=== PATIENT | female | born 1975 | race American Indian/Alaskan Native ===

== ENCOUNTER 2017-04-28 03:59 | Emergency (ER) | payer SELFPAY ==
[2017-04-28 04:48] LABS: Basophils % (Auto) 0.7 % (0.0-1.8); Eosinophils % (Auto) 3.3 % (0.0-4.3); Hematocrit 37.6 % (30.3-42.9); Hemoglobin 12.6 gm/dl (10.1-14.3); Mean Corpuscular HGB Conc 34 % (30-34); Mean Corpuscular Hemoglobin 29 pg (28-32); Mean Corpuscular Volume 86 fl (79-97); Platelet Count 224 K/mm3 (140-440); Red Blood Count 4.39 M/mm3 (3.65-5.03); Red Cell Distribution Width 14.5 % (13.2-15.2); White Blood Count 6.8 K/mm3 (4.5-11.0)
[2017-04-28 05:18] LABS: Anion Gap 19 mmol/L; BUN/Creatinine Ratio 25.71; Blood Urea Nitrogen 18 mg/dL (7-17); Calcium 9.1 mg/dL (8.4-10.2); Carbon Dioxide 23 mmol/L (22-30); Chloride 100.2 mmol/L (98-107); Glucose 99 mg/dL (65-100); Potassium 4.3 mmol/L (3.6-5.0); Sodium 138 mmol/L (137-145)
[2017-04-28 06:49] LABS: Bilirubin,Urine NEG (Negative); Blood,Urine NEG (Negative); Ketones,Urine NEG (Negative); Leukocyte Esterase,Urine NEG (Negative); Mucus,Urine FEW /HPF; Nitrite,Urine NEG (Negative); Protein,Urine <15 mg/dL mg/dL (Negative); Urobilinogen,Urine < 2.0 mg/dL (<2.0)
[2017-04-28] MEDS ORDERED: TORADOL IV ONE (09:21)
[2017-04-28] MEDS ORDERED: NACL 0.9% 1000 ML 1,000 ML IV ONE (09:21)
[2017-04-28] MEDS ORDERED: REGLAN IV ONE (09:21)
--- NOTE | 2017-04-28 09:30 | Emergency Department Report ---
ED Headache HPI - General Chief Complaint: Weakness Stated Complaint: SOB/CATALAN/WEAKNESS Time Seen by Provider: 04/28/17 09:14 Source: patient, RN notes reviewed Exam Limitations: no limitations - History of Present Illness Initial Comments: 41-year-old female presents to the emergency department complaining of headache , dizziness, generalized weakness, and tingling in her hands and feet. Symptoms have been present for 2 days. Symptoms have been constant since onset and have not gotten better or worse. She describes aching pain on the right side of her forehead. This pain does not radiate. Patient states that she feels like she might pass out, but there has been no loss of consciousness. She does report nausea, but there has been no vomiting. Nursing note reports shortness of breath, but the patient denies difficulty breathing. Patient states that she has no difficulty moving any of her extremities. There are no other complaints. Timing/Duration: other (2 days) Quality: moderate, constant Head Injury Location: frontal Recent Head Trauma: no recent headache/trauma Associated Symptoms: nausea/vomiting (nausea only), weakness Allergies/Adverse Reactions: Allergies No Known Allergies Allergy (Verified 04/01/15 23:03) Home Medications: Ambulatory Orders Butalb/Acetamin/Caff 50-325-40 [Fioricet] 1 each PO Q4H PRN #30 tablet 04/28/17 ED Review of Systems ROS: Stated complaint: SOB/CATALAN/WEAKNESS Other details as noted in HPI Comment: All other systems reviewed and negative Constitutional: weakness Cardiovascular: other (lightheadedness) Gastrointestinal: nausea Neurological: headache, paresthesias ED Past Medical Hx - Past Medical History Previous Medical History?: Yes Additional medical history: Vertigo. enlarged heart. - Surgical History Past Surgical History?: Yes Additional Surgical History: ovarian cyst removed - Family History Family history: CAD/GA - Social History Smoking Status: Never Smoker Substance Use Type: Alcohol - Medications Home Medications: Home Medications Medication Instructions Recorded Confirmed Last Taken Type Butalb/Acetamin/Caff 50-325-40 1 each PO Q4H PRN #30 tablet 04/28/17 Unknown Rx [Fioricet] ED Physical Exam - General Limitations: No Limitations General appearance: alert, in no apparent distress - Head Head exam: Present: atraumatic, normocephalic - Eye Eye exam: Present: normal appearance, PERRL, EOMI - ENT ENT exam: Present: normal exam, normal orophraynx, mucous membranes moist - Neck Neck exam: Present: normal inspection, full ROM. Absent: tenderness - Respiratory Respiratory exam: Present: normal lung sounds bilaterally. Absent: respiratory distress - Cardiovascular Cardiovascular Exam: Present: regular rate, normal rhythm, normal heart sounds - GI/Abdominal GI/Abdominal exam: Present: soft, normal bowel sounds. Absent: distended, tenderness - Extremities Exam Extremities exam: Present: normal inspection, full ROM. Absent: tenderness - Back Exam Back exam: Present: normal inspection, full ROM. Absent: tenderness - Neurological Exam Neurological exam: Present: alert, oriented X3. Absent: motor sensory deficit - Skin Skin exam: Present: warm, dry, intact ED Course Vital Signs 04/28/17 04/28/17 04/28/17 04:08 06:19 09:30 Temperature 98.4 F Pulse Rate 74 67 Respiratory 20 18 18 Rate Blood Pressure 170/109 Blood Pressure 123/74 [Left] O2 Sat by Pulse 100 100 Oximetry ED Medical Decision Making - Lab Data Result diagrams: 04/28/17 04:24 04/28/17 04:24 - Medical Decision Making Lab results reviewed and discussed with the patient. Patient reports her symptoms have resolved with medication. Patient will be discharged home at this time. - Differential Diagnosis tension headache, migraine headache, dehydration Critical care attestation.: If time is entered above; I have spent that time in minutes in the direct care of this critically ill patient, excluding procedure time. ED Disposition Clinical Impression: Headache Qualifiers: Headache type: tension-type Headache chronicity pattern: acute headache Intractability: not intractable Qualified Code(s): G44.209 - Tension-type headache, unspecified, not intractable Disposition: DC-01 TO HOME OR SELFCARE Is pt being admited?: No Condition: Stable Instructions: Acute Headache (ED) Prescriptions: Butalb/Acetamin/Caff 50-325-40 [Fioricet] 1 each PO Q4H PRN #30 tablet PRN Reason: Headache Referrals: PRIMARY CARE, [Primary Care Provider] - 3-5 Days Time of Disposition: 10:22
[2017-04-28 10:27] VITALS: BP 144/90
== END 2017-04-28 10:50 | disposition home or self-care (01) ==
LOC: ED 03:59
DX: R51 Headache (principal); R42 Dizziness and giddiness; R53.1 Weakness
CPT/HCPCS: 36415; 80048; 81001; 84703; 85025; 96361; 96374; 96375; 99283; J1885; J2765; J7030

== ENCOUNTER 2020-11-28 11:32 | Outpatient (CLI) | payer BC, OTHER ==
--- NOTE | 2020-11-28 13:47 | Mammography Report ---
DIGITAL DIAGNOSTIC MAMMOGRAM WITH CAD CONVENTIONAL, 11/28/2020 CLINICAL INFORMATION / INDICATION: Postbiopsy mammogram following right breast biopsy performed by Gavin Montaño. TECHNIQUE: Digital right mammographic imaging was performed. This examination was interpreted with the benefit of Computer-aided Detection analysis. COMPARISON: Prior mammograms 11/13/2020 FINDINGS: Breast Density: There are scattered areas of fibroglandular density. Postbiopsy mammogram reveals a biopsy clip appropriately positioned within the previously described r ight breast mass in the 11 to 12:00 position, middle depth. IMPRESSION: 1. Appropriately positioned biopsy clip in the previously described right breast mass. Follow up recommendation: No recall. Post biopsy imaging. A "normal" or negative report should not discourage follow up or biopsy of a clinically significant f inding. A written summary of these findings will be mailed to the patient. The patient will be entered into a mammography reporting system which will generate a reminder letter for the patient's next appointmen t at the appropriate interval. According to the [employer], yearly mammograms are recommended starting at age 40 and continuing as long as a woman is in good health. Breast MRI is recommended for women with an kellie roximately 20-25% or greater lifetime risk of breast cancer, including women with a strong family his tory of breast or ovarian cancer and women who have been treated for Hodgkin's disease. Signer Name: Martha Leggett MD Signed: 11/28/2020 1:43 PM Workstation Name: [id number]
== END 2020-11-28 11:33 | disposition home or self-care (01) ==
LOC: SPVWC 11:32
PROVIDERS: ATTEND Surgery
DX: R92.8 Other abnormal and inconclusive findings on diagnostic imaging of breast (principal)

== ENCOUNTER 2020-11-28 15:48 | Outpatient (CLI) | payer BC, OTHER | END 2020-11-28 15:49 | disposition home or self-care (01) | LOC: LABHHL 15:48 | PROVIDERS: ATTEND Surgery | DX: N63.41 Unspecified lump in right breast, subareolar (principal); N63.11 Unspecified lump in the right breast, upper outer quadrant | CPT/HCPCS: 88305; 88341; 88342 ==

== ENCOUNTER 2020-12-23 08:41 | Outpatient (CLI) | payer BC ==
--- NOTE | 2020-12-23 11:20 | Magnetic Resonance Report ---
Bilateral breast MR without and with contrast. History: Recently diagnosed right breast malignancy, assess extent of disease. Comparison: 11/28/2020, 11/13/2020, 12/26/2017. Technique: Multiplanar multisequence MR images of the breast were obtained before and after the intra venous administration of 19 mL of Clariscan contrast agent. Post processing analysis and review was p erformed on a separate computer workstation. Findings: Breast composition is predominantly fatty. There is minimal background parenchymal enhancement bilate rally. RIGHT BREAST: Located at the 12:00 position at middle depth is a 2 x 1.8 x 1.7 cm enhancing mass. Thi s is reported to represent the site of known biopsy-proven malignancy. No additional suspicious findi ngs within the right breast to suggest further extent of disease. No evidence of skin or pectoralis m uscle involvement. Right upper outer breast intramammary lymph nodes are incidentally noted and stabl e compared to 2018 mammogram. LEFT BREAST: No enhancing mass, dominant focus, or other abnormal enhancement is identified within th e left breast. No abnormal axillary or internal mammary lymph nodes. Impression: Known biopsy-proven malignancy in the right breast at the 12:00 position measures up to 2 cm. No find ings to suggest further extent of disease or additional suspicious findings within either breast. BIRADS 6: Known biopsy proven malignancy. Signer Name: Jason Niño MD Signed: 12/23/2020 11:16 AM Workstation Name: [id number]
== END 2020-12-23 08:42 | disposition home or self-care (01) ==
LOC: SPVIMAG 08:41
PROVIDERS: ATTEND Surgery
DX: C50.411 Malignant neoplasm of upper-outer quadrant of right female breast (principal); N63.12 Unspecified lump in the right breast, upper inner quadrant; R59.0 Localized enlarged lymph nodes
CPT/HCPCS: A9575; C8908; 77049

== ENCOUNTER 2021-01-01 06:21 | Day surgery (SDC) | payer BC ==
[2021-01-01] MEDS ORDERED: LACTATED RINGERS 1,000 ML IV SCH (06:30)
[2021-01-01] MEDS ORDERED: BACTERIOSTATIC SODIUM CHLORIDE 0.9% 30 ML VIAL INFILTRATI ONE (06:33)
[2021-01-01] MEDS ORDERED: ceFAZolin/STERILE WATER 2 GM/20 ML SYRINGE IV NR (08:00)
[2021-01-01] MEDS ORDERED: BUPIVACAINE/PF (0.5%) 5 MG/1 ML 30 ML VIAL INFILTRATI ONE ×2 (08:07→09:44)
[2021-01-01] MEDS ORDERED: LIDOCAINE (1%) 10 MG/1 ML VIAL 20 ML MDV ONE (08:07)
[2021-01-01] MEDS ORDERED: propofoL 200 MG/20 ML VIAL IV ONE ×2 (08:16→09:04)
[2021-01-01] MEDS ORDERED: HYDROmorphone 1 MG/1 ML INJ ONE (08:16)
[2021-01-01] MEDS ORDERED: MIDAZOLAM 2 MG/2 ML INJ ONE (08:16)
[2021-01-01] MEDS ORDERED: LIDOCAINE MPF (2%) 20 MG/1 ML VIAL 5 ML ONE (08:17)
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
--- NOTE | 2021-01-01 08:30 | Anesthesia Day of Surgery ---
Anesthesia Day of Surgery - Day of Surgery Patient Examined: Yes Patient H&P Reviewed: Yes Patient is NPO: Yes Beta Blockers: No Cardiac Clearance: No Pulmonary Clearance: No Alan's Test: N/A
[2021-01-01] MEDS ORDERED: SODIUM CHLORIDE 0.9% 100 ML ONE (08:53)
[2021-01-01] MEDS ORDERED: HEPARIN 10,000 UNITS/10 ML VIAL ONE (08:53)
[2021-01-01] MEDS ORDERED: MIDAZOLAM 2 MG/2 ML INJ IV NR (09:00)
[2021-01-01] MEDS ORDERED: SODIUM CHLORIDE 0.9% 100 ML IVPB IV ONE (09:45)
[2021-01-01] MEDS ORDERED: LIDOCAINE (1%) 10 MG/1 ML VIAL 20 ML MDV INFILTRATI ONE (09:45)
[2021-01-01] MEDS ORDERED: HEPARIN 10,000 UNITS/10 ML VIAL IV ONE (09:45)
[2021-01-01] MEDS ORDERED: SODIUM CHLORIDE 0.9% IRR 1,500 ML BOTTLE IR ONE (09:47)
[2021-01-01] MEDS ORDERED: ONDANSETRON 4 MG/2 ML INJ ONE (09:58)
--- NOTE | 2021-01-01 10:05 | Short Stay Summary ---
Short Stay Documentation Date of service: 01/01/21 - History Principal diagnosis: right breast cancer H&P: obtained from office - Allergies and Medications Current Medications: Allergies methylphenidate [From Ritalin] Allergy (Verified 12/30/20 11:58) Makes pt feel suicidal Home Medications Medication Instructions Recorded Confirmed Last Taken Type LORazepam [Ativan] 1 mg PO TID PRN 12/30/20 01/01/21 01/01/21 06:25 History Metoprolol [Lopressor] 25 mg PO DAILY 12/30/20 01/01/21 01/01/21 04:05 History Zolpidem [Ambien] 5 mg PO QHS PRN 01/01/21 01/01/21 12/01/20 History Active Medications Cefazolin Sodium (Cefazolin/Sterile Water 2 Gm/20 Ml Syringe) 2 gm IV PREOP NR Stop: 01/01/21 13:00 Lactated Ringer's (Lactated Ringers) 1,000 mls @ 100 mls/hr IV DIRECT ZEYAD Last Admin: 01/01/21 07:37 Dose: 100 mls/hr Documented by: Midazolam HCl (Midazolam 2 Mg/2 Ml Inj) 2 mg IV PREOP NR Stop: 01/01/21 23:59 Last Admin: 01/01/21 08:18 Dose: 2 mg Documented by: - Brief post op/procedure progress note Date of procedure: 01/01/21 Pre-op diagnosis: right breast cancer Post-op diagnosis: same Procedure: left IJ vein port placement with bedside ultrasound guidance Anesthesia: MAC, local Findings: good placement of port without PTX on post op CXR Surgeon: MARY OVALLES Estimated blood loss: minimal Pathology: none Condition: stable - Hospital course Hospital course: Pt observed in PACU and discharged to home in stable condition when criteria met - Disposition Condition at discharge: Good Disposition: DC-01 TO HOME OR SELFCARE Short Stay Discharge Plan Activity: advance as tolerated, other (Do not drive if taking prescription pain medications) Diet: regular Wound: open to air (May shower tomorrow, pat incisions dry and do not scrub. Do not submerge incisions in hottub/pool/bath for 2 weeks) Additional Instructions: Ok to start using port immediately. May use over the counter tylenol or ibuprofen for pain. Also may use an ice pack to the area of the incisions to help with soreness and bruising. Follow up with: GREGORY JHA MD [Primary Care Provider] - 7 Days MARY OVALLES DO [Staff Physician] - 14 Days Prescriptions: HYDROcodone/APAP 5-325 [[facility] 5/325] 1 each PO Q6HR PRN #10 tablet PRN Reason: Pain , Severe (7-10)
[2021-01-01] MEDS ORDERED: ONDANSETRON 4 MG/2 ML INJ IV PRN (10:11)
[2021-01-01] MEDS ORDERED: HYDROmorphone 1 MG/1 ML INJ IV PRN (10:11)
[2021-01-01] MEDS ORDERED: HYDROcodone/ACETAMINOPHEN 5-325 MG TAB PO PRN (10:12)
[2021-01-01 10:38] VITALS: BP 132/47
--- NOTE | 2021-01-01 11:10 | Fluoroscopy Report ---
FL centr venous dev plct INDICATION / CLINICAL INFORMATION: Breast Cancer. COMPARISON: Prior examinations would not load FINDINGS: SUPPORT DEVICES: Left internal jugular port terminates in the right atrium. HEART / MEDIASTINUM: Unchanged. LUNGS / PLEURA: Low lung volumes with bronchial vascular crowding. Nonspecific left upper lung zone p arenchymal opacities are thought to be related to vasculature. No pneumothorax. ADDITIONAL FINDINGS: No significant additional findings. IMPRESSION: 1. Port terminates in right atrium. Signer Name: Donnell Grewal MD Signed: 01/01/2021 11:05 AM Workstation Name: [id number]
--- NOTE | 2021-01-01 11:30 | Operative Report ---
Operative Report Operative Report: Date of procedure: 01/01/21 Pre-op diagnosis: right breast cancer Post-op diagnosis: same Procedure: left IJ vein port placement with bedside ultrasound guidance Anesthesia: MAC, local Findings: good placement of port without PTX on post op CXR Surgeon: MARY OVALLES Estimated blood loss: minimal Pathology: none Condition: stable Hospital course: Pt observed in PACU and discharged to home in stable condition when criteria met HPI and indication: Patient is a 45-year-old female with a recent diagnosis of right-sided breast cancer. The patient is seen by Dr. Joaquin and deemed a candidate for chemotherapy. All of the risks associated with the procedure were discussed with the patient including but not limited to pneumothorax, infection, bleeding, malpositioned port, injury to other structures. The patient understands and all questions were answered. Consent was signed and placed on chart. Procedure in detail: The patient was identified in the preoperative area, taken back to operating room, placed on operating table in supine position. After anesthesia was induced both arms were tucked and upper chest and neck were prepped and draped in usual sterile fashion. A timeout was performed. The was placed in Trendelenburg position. Local anesthetic was infiltrated into the skin at the intended puncture site. The left subclavian vein was difficult to visualize on bedside ultrasound due to patient's body habitus. The left internal internal jugular vein was easily visualized with ultrasound and was accessed on the first stick. There was return of dark red, nonpulsatile blood. The wire was threaded under fluoroscopy but wound not advance into SVC and so a glidewire was used and was threaded into the right atrium without resistance and positioning confirmed. The needle was then removed. Using a 15 blade, an incision was made in the left upper chest and dissection carried down through the skin and subcutaneous tissue using Bovie electrocautery. Hemostasis was achieved along the way. A pocket for the port was then created bluntly and with electrocautery. The catheter was flushed and tunneled from the pocket to the wire. A breakaway catheter/dilator sheath then inserted over the wire under fluoroscopy, and the wire and dilator removed. The catheter was then inserted through the breakaway catheter which was then removed. The catheter sat flush under the skin. Using continuous fluoroscopy, the catheter was pulled back until the tip was visualized at the cavoatrial junction. The catheter was then cut to size and the port attached in the usual fashion. The port was then sutured into place to the pre-pectoral fascia using 2-0 Vicryl interrupted sutures. The wound was irrigated and hemostasis ensured. The port was tested with heparinized saline and there was return of blood and it flushed easily. The port was then instilled with 3000 units of undiluted heparin. The deep dermal layer was then closed with interrupted 3-0 Vicryl stitches. The skin incisions were closed with 4-0 Monocryl subcuticular stitches and skin glue. Intraoperative chest x-ray did show good positioning of the port, without evidence of pneumothorax At the end of the case, all sponge, instrument, sharp counts were correct 2. The patient was awoken from anesthesia and taken to PACU in stable condition.
--- NOTE | 2021-01-01 12:41 | Post Anesthesia Evaluation ---
- Post Anesthesia Evaluation Patient Participated: Yes Airway Patent: Yes Stable Respiratory Function: Yes Nausea/Vomiting: No Temp > 96.8F: Yes Pain Manageable: Yes Adequeate Hydration: Yes Anesthesia Complications: No Block Receding Appropriately: Not Applicable Patient on Ventilator: No
== END 2021-01-01 11:40 | disposition home or self-care (01) ==
LOC: OR 06:21
PROVIDERS: ATTEND Surgery
DX: C50.911 Malignant neoplasm of unspecified site of right female breast (principal); G43.909 Migraine, unspecified, not intractable, without status migrainosus; I42.9 Cardiomyopathy, unspecified; K21.9 Gastro-esophageal reflux disease without esophagitis; Z20.828 Contact with and (suspected) exposure to other viral communicable diseases; E66.9 Obesity, unspecified; F32.9 Major depressive disorder, single episode, unspecified; F41.9 Anxiety disorder, unspecified; Z79.899 Other long term (current) drug therapy; Z88.8 Allergy status to other drugs, medicaments and biological substances; Z68.39 Body mass index [BMI] 39.0-39.9, adult
CPT/HCPCS: 36561; 77001; 81025; C1769; C1788; J0690; J1170; J1644; J2250; J2405; J2704; J7120; U0003

== ENCOUNTER 2021-01-13 15:00 | Outpatient (CLI) | payer BC ==
--- NOTE | 2021-01-14 08:46 | Ultrasound Report ---
ULTRASOUND GUIDED RIGHT AXILLARY LYMPH NODE BIOPSY, 01/13/2021 CLINICAL INFORMATION / INDICATION: BREAST CA. Patient has history of right breast cancer on chemother apy, and presents for ultrasound-guided biopsy of a prominent right axillary lymph node. COMPARISON: Prior mammogram 11/28/2020 and breast MRI 12/23/2020 PROCEDURE: Preliminary ultrasound of the right axilla reveals 2 borderline right axillary lymph nodes with corti ousmane thickness measuring up to 3 to 4 mm. There is a slight cortical bulge in one of the lymph nodes. Risks, benefits, and indications to the procedure were discussed with the patient in detail, includin g bleeding, infection, hematoma formation, and inadequate tissue sampling. The patient agreed to proc eed with both verbal and written consent. A timeout procedure was performed with two patient identifi ers. The breast was prepped and draped in the usual sterile fashion. Lidocaine 1% with and without epineph rine were used for local anesthesia. Under direct ultrasound guidance, multiple core samples were obt ained of the right axillary lymph node. A biopsy marker was then placed. Biopsy device was removed a nd hemostasis achieved with manual pressure. A sterile dressing was applied to the skin. The patient tolerated the procedure without difficulty. No complications were encountered. Postbiopsy instructions were discussed with the patient and given in writing. Specimens were sent to pathology. IMPRESSION: 1. Technically successful ultrasound guided right axillary lymph node biopsy. Biopsy results are pending and will be reported in an addendum. Signer Name: Martha Leggett MD Signed: 01/14/2021 8:41 AM Workstation Name: [id number]
== END 2021-01-13 15:01 | disposition home or self-care (01) ==
LOC: SPVWC 15:00
PROVIDERS: ATTEND Surgery
DX: I89.8 Other specified noninfective disorders of lymphatic vessels and lymph nodes (principal); C50.411 Malignant neoplasm of upper-outer quadrant of right female breast; I10 Essential (primary) hypertension; K21.9 Gastro-esophageal reflux disease without esophagitis; E66.9 Obesity, unspecified; F32.9 Major depressive disorder, single episode, unspecified; F41.9 Anxiety disorder, unspecified; Z72.89 Other problems related to lifestyle; Z79.899 Other long term (current) drug therapy; Z98.890 Other specified postprocedural states; Z88.8 Allergy status to other drugs, medicaments and biological substances
CPT/HCPCS: 38505; 76942; 88305; 88342

== ENCOUNTER 2021-04-29 13:03 | Outpatient (CLI) | payer BC ==
--- NOTE | 2021-04-30 14:15 | Mammography Report ---
RIGHT DIGITAL DIAGNOSTIC MAMMOGRAM WITH CAD WITH TOMOSYNTHESIS, 04/29/2021 RIGHT LIMITED BREAST ULTRASOUND CLINICAL INFORMATION / INDICATION: The patient has a known diagnosis of right breast cancer. She is c urrently undergoing therapy. This is a short-term follow-up evaluation TECHNIQUE: Digital right mammographic imaging was performed. Limited ultrasound was performed. This e xamination was interpreted with the benefit of Computer-Aided Detection (CAD) analysis. COMPARISON: Diagnostic mammogram, 11/13/2020. Right breast ultrasound, 03/26/2021 from [facility] FINDINGS: Breast Density: There are scattered areas of fibroglandular density. MAMMOGRAPHIC FINDINGS: The spiculated mass at the 12-1:00 position has significantly decreased in siz e. Today it measures 0.9 x 0.9 cm as compared to 1.5 x 1.4 cm on the previous mammogram. No additiona l new or suspicious mammographic finding is visualized. ULTRASOUND FINDINGS: Targeted ultrasound evaluation was performed of the area of interest. Sonograp hic evaluation of the right breast demonstrates the spiculated hypoechoic solid mass at the 11:00 pos ition 10 cm from the nipple measuring 0.9 x 0.8 cm. It measured approximately at least 1.2 x 1.2 cm o n the previous ultrasound. Normal-appearing right axillary lymph node is again noted with an associated biopsy clip. It has been previously biopsied with benign results. IMPRESSION: 1. Interval decrease in size of known right breast neoplasm as described above. No new or suspicious finding is identified. Follow up recommendation: No recall. Surgical consultation is ongoing with Dr. Montaño. BI-RADS Category 6: Known Biopsy-Proven Malignancy. A "normal" or negative report should not discourage follow up or biopsy of a clinically significant f inding. A written summary of these findings will be mailed to the patient. The patient will be entered into a mammography reporting system which will generate a reminder letter for the patient's next appointmen t at the appropriate interval. According to the [employer], yearly mammograms are recommended starting at age 40 and continuing as long as a woman is in good health. Breast MRI is recommended for women with an kellie roximately 20-25% or greater lifetime risk of breast cancer, including women with a strong family his tory of breast or ovarian cancer and women who have been treated for Hodgkin's disease. Signer Name: Alice Stratton MD Signed: 04/30/2021 2:10 PM Workstation Name: [id number]
== END 2021-04-29 13:04 | disposition home or self-care (01) ==
LOC: SPVWC 13:03
PROVIDERS: ATTEND Surgery
DX: C50.411 Malignant neoplasm of upper-outer quadrant of right female breast (principal); N63.11 Unspecified lump in the right breast, upper outer quadrant
CPT/HCPCS: 76642; 77065; G0279

== ENCOUNTER 2021-06-10 08:03 | Day surgery (SDC) | payer BC ==
[~2021-06-10 08:03] MED LIST: ceFAZolin/STERILE WATER 2 GM/20 ML SYRINGE IV NR
[2021-06-10] MEDS ORDERED: LIDOCAINE (1%) 10 MG/1 ML VIAL 20 ML MDV ONE (09:01)
[2021-06-10] MEDS ORDERED: ACETAMINOPHEN 500 MG TAB PO NR (10:13)
[2021-06-10] MEDS ORDERED: fentaNYL 100 MCG/2 ML INJ IV NR (10:13)
[2021-06-10] MEDS ORDERED: ONDANSETRON 4 MG/2 ML INJ IV PRN ×2 (10:13→16:56)
[2021-06-10] MEDS ORDERED: MAGNESIUM OXIDE 400 MG TAB PO NR (10:13)
[2021-06-10] MEDS ORDERED: HYDROmorphone 1 MG/1 ML INJ IV PRN ×2 (10:13)
--- NOTE | 2021-06-10 10:13 | Anesthesia Day of Surgery ---
Anesthesia Day of Surgery - Day of Surgery Patient Examined: Yes Patient H&P Reviewed: Yes Patient is NPO: Yes Beta Blockers: Yes
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
[2021-06-10] MEDS ORDERED: CELECOXIB 200 MG CAP PO NR (11:00)
[2021-06-10] MEDS ORDERED: MIDAZOLAM 2 MG/2 ML INJ IV NR (11:00)
[2021-06-10] MEDS ORDERED: LACTATED RINGERS 1,000 ML IV SCH ×2 (11:00→17:00)
[2021-06-10] MEDS ORDERED: dexAMETHasone 4 MG/ML VIAL ONE (11:48)
[2021-06-10] MEDS ORDERED: BUPIVACAINE/PF (0.25%) 2.5 MG/ML 30 ML VIAL INFILTRATI ONE (11:48)
[2021-06-10] MEDS ORDERED: MIDAZOLAM 2 MG/2 ML INJ IV ONE ×2 (11:55→12:00)
--- NOTE | 2021-06-10 12:39 | Mammography Report ---
MAMMOGRAPHIC GUIDED RIGHT BREAST NEEDLE LOCALIZATION, 06/10/2021 MAMMOGRAPHIC GUIDED RIGHT BREAST NEEDLE LOCALIZATION, EA ADD CLINICAL INFORMATION / INDICATION: RT BREAST CANCER. COMPARISON: 04/29/2021 PROCEDURE: Risks, benefits and indications to the procedure were discussed with the patient. The patient agreed to proceed with both verbal and written consent. A timeout procedure was performed with 2 patient jenniffer ntifiers. The breast was prepped with betadine in the usual sterile fashion. Approximately 5 cc of Lidocaine 1% was used for local anesthesia. Under direct digital mammographic guidance, a 5.5 cm localization wire was placed in satisfactory pos ition with distal tip traversing an approximate 1 cm mass in the superior right breast near 12:00. Po st-biopsy mammogram confirms satisfactory positioning of the localization wire. The wire was secured to the skin with a sterile dressing. Under direct digital mammographic guidance, a 3.5 cm localization wire was placed in satisfactory pos ition with the distal tip transversing a surgical clip which had migrated since previous exam in the superior lateral right breast. Postbiopsy mammogram confirms satisfactory positioning of the localiza tion wire. The wire was secured to the skin with a sterile dressing. The patient tolerated procedure without difficulty. No complications were encountered. IMPRESSION: Satisfactory mammographic guided wire localization of a right breast mass and a right breast clip as described. Signer Name: Paul Thomason Jr, MD Signed: 06/10/2021 12:34 PM Workstation Name: [id number]
[2021-06-10] MEDS ORDERED: propofoL 200 MG/20 ML VIAL IV ONE (12:58)
[2021-06-10] MEDS ORDERED: ONDANSETRON 4 MG/2 ML INJ ONE (12:58)
[2021-06-10] MEDS ORDERED: HYDROmorphone 1 MG/1 ML INJ ONE (12:58)
[2021-06-10] MEDS ORDERED: LIDOCAINE MPF (2%) 20 MG/1 ML VIAL 5 ML ONE (12:58)
[2021-06-10] MEDS ORDERED: METHYLENE BLUE 50 MG/10 ML AMP ONE (13:14)
[2021-06-10] MEDS ORDERED: SODIUM CHLORIDE P/F VIAL 10 ML 10 ML ONE (13:33)
[2021-06-10] MEDS ORDERED: dexAMETHasone 20 MG/5 ML VIAL ONE (13:54)
[2021-06-10] MEDS ORDERED: PHENYLEPHRINE/NS 1,000 MCG/10 ML SYRINGE (OR USE) IV ONE (14:31)
[2021-06-10] MEDS ORDERED: METHYLENE BLUE 50 MG/10 ML AMP IV ONE (14:44)
[2021-06-10] MEDS ORDERED: WATER FOR IRRIG STERILE 1,500 ML BOTTLE IR ONE (14:45)
[2021-06-10] MEDS ORDERED: SODIUM CHLORIDE 0.9% P/F 10 ML VIAL INFILTRATI ONE (14:46)
[2021-06-10] MEDS ORDERED: ePHEDrine SULFATE 50 MG/1 ML INJ ONE (15:20)
--- NOTE | 2021-06-10 16:46 | Short Stay Summary ---
Short Stay Documentation Date of service: 06/10/21 - History H&P: obtained from office - Allergies and Medications Current Medications: Allergies methylphenidate [From Ritalin] Allergy (Verified 06/02/21 12:39) Makes pt feel suicidal Home Medications Medication Instructions Recorded Confirmed Last Taken Type LORazepam [Ativan] 1 mg PO TID PRN 12/30/20 06/10/21 06/10/21 06:00 History Metoprolol [Lopressor TAB] 25 mg PO BID 12/30/20 06/10/21 06/10/21 06:00 History Ibuprofen [Motrin] 800 mg PO Q8HR PRN 06/02/21 06/10/21 05/27/21 09:00 History diphenhydrAMINE [Benadryl CAP] 25 mg PO Q6HR PRN 06/02/21 06/10/21 06/01/21 09:00 History Ibuprofen [Motrin 800 MG tab] 800 mg PO Q8HR PRN #12 tablet 06/10/21 Unknown Rx Active Medications Acetaminophen (Acetaminophen 500 Mg Tab) 1,000 mg PO ONCE NR Stop: 06/10/21 18:00 Last Admin: 06/10/21 10:40 Dose: 1,000 mg Documented by: Cefazolin Sodium (Cefazolin/Sterile Water 2 Gm/20 Ml Syringe) 2 gm IV PREOP NR Stop: 06/10/21 23:01 Hydromorphone HCl (Hydromorphone 1 Mg/1 Ml Inj) 0.25 mg IV Q10MIN PRN PRN Reason: Pain, Moderate (4-6) Stop: 06/10/21 23:00 Hydromorphone HCl (Hydromorphone 1 Mg/1 Ml Inj) 0.5 mg IV Q10MIN PRN PRN Reason: Pain , Severe (7-10) Stop: 06/10/21 23:00 Lactated Ringer's (Lactated Ringers) 1,000 mls @ 100 mls/hr IV DIRECT ZEYAD Last Admin: 06/10/21 10:25 Dose: 100 mls/hr Documented by: Midazolam HCl (Midazolam 2 Mg/2 Ml Inj) 2 mg IV PREOP NR Stop: 06/10/21 23:59 Last Admin: 06/10/21 11:51 Dose: 2 mg Documented by: - Brief post op/procedure progress note Date of procedure: 06/10/21 Pre-op diagnosis: Right breast cancer UOQ Post-op diagnosis: same Procedure: Right needle loc partial mastectomy with SLNB Anesthesia: GETA Findings: Wire, mass and clip present; x3 slns Surgeon: GO GAVIRIA Estimated blood loss: minimal Pathology: list Specimen disposition: to lab Condition: stable - Disposition Condition at discharge: Good Disposition: 01 HOME / SELF CARE / HOMELESS Short Stay Discharge Plan Activity: other (no heavy lifting) Diet: regular Wound: keep clean and dry (wear breast binder; may shower in 48 hours; no baths, pools or lakes) Follow up with: GO GAVIRIA MD [Staff Physician] - 7 Days Prescriptions: Ibuprofen [Motrin 800 MG tab] 800 mg PO Q8HR PRN #12 tablet PRN Reason: Pain , Severe (7-10)
--- NOTE | 2021-06-10 16:55 | Operative Report ---
Operative Report Operative Report: Operative Report: June 10, 2021 Preoperative diagnosis: Right breast cancer of the upper outer quadrant Postoperative diagnosis: Same Procedure: Right breast needle localization partial mastectomy of the upper outer quadrant with SLNB Surgeon: Lina Montaño MD Hot Room Attendant: Devorah Riley MD Anesthesia: General Findings: Right wire, mass and clip present within radiograph specimen; x3 SLNs Complications: None EBL: Less than 50 cc Disposition: PACU in good condition Indications for operative procedure: This is a 45 year old lady with newly diagnosed right breast cancer of the upper outer quadrant, Stage IB IDCA grade 3, [id number] triple negative (11:00 position 10-12 cm FN). She recently completed neoadjuvant chemotherapy of AC/T. Recent diagnostic right mammogram with decrease in size of breast cancer mass and biopsy clip noted to migrated from the breast cancer mass to just underneath the skin. Recommendations are to proceed with breast conservation. Radiology to place wire at location of cancer. She understands the role of adjuvant radiation therapy. She wished to proceed with the above procedure. Procedure in detail: The patient was taken to radiology for wire placement for localization known area of cancer and second wire localizing clip. Anesthesia placed right pectoral block. Patient was then taken to the operating room. Gen. anesthesia was administered. The right nipple was injected with radioisotope and 1 cc of methylene blue dye. Right breast and axilla were prepped and draped in the normal sterile operative fashion. The wires were identified. Ultrasound used as well with findings of known breast malignancy 11:00 position 10-12 cm FN. Timeout was performed. Gamma probe was inserted into the axilla. The area of hot spot was identified. A right axillary incision was made with a 15 blade knife with dissection taken down to the subcutaneous tissues. The axillary fascia was opened with the Bovie cautery. 3 SLNs were identified and dissected free; 2 lymph nodes with blue dye present. All remaining counts were less than 10% of th e highest count. Lymph nodes were sent to pathology for permanent processing. Hemostasis was obtained in the right axillary cavity. Axillary cavity was appropriately irrigated and suctioned. Hemostasis was noted. Axillary fascia was approximated and closed using interrupted 3-0 Vicryl. The subcutaneous tissues were then approximated and closed using interrupted 3-0 Vicryl followed by closing of the skin with a running 4-0 Monocryl and dermabond. Attention was then taken towards the right breast. A right periareolar breast incision was made with a 15 blade knife with dissection taken down to the subcutaneous tissues. First began raising of the anterior/superior flap with removal of the wire from the skin with dissection taken superiorly past the area of known malignancy and then taken down to the pectoralis muscle, followed by raising of the inferior flap, medial flap and lateral flap with all flaps taken past the area of known malignancy and then posteriorly down to the pectoralis muscle. The breast area of concern was appropriately removed posteriorly from the pectoralis muscle with the aid of the Bovie cautery. The wire was not encountered. Specimen was marked and then sent to pathology and radiology; radiograph specimen with wire and clip present. Ultrasound used as well with adequate appearing margins and no suspicious findings in the breast cavity. Breast cavity was irrigated and hemostasis was obtained. The second wire that was localized for the clip was identified and the clip was dissected from the the underlying skin and sent to radiology with clip present. Then proceeded with complex closure. The posterior deep breast tissues were then mobilized to approximate and cover the area of the defect of at least 5 cm. The posterior deep breast tissues were approximated and closed using interrupted 3-0 Vicryl. The subcutaneous tissues were then approximated and closed using interrupted 3-0 Vicryl followed by closing of the skin with a running 4-0 Monocryl and dermabond. The patient tolerated surgery very well and she was awaken from anesthesia without any complication and transported to PACU in good condition.
[2021-06-10] MEDS ORDERED: KETOROLAC 30 MG/1 ML INJ IV PRN (16:56)
[2021-06-10] MEDS ORDERED: fentaNYL 100 MCG/2 ML INJ IV PRN (16:56)
[2021-06-10] MEDS ORDERED: MORPHINE 2 MG/1 ML INJ IV PRN (16:56)
[2021-06-10 17:58] VITALS: BP 145/86
--- NOTE | 2021-06-10 18:37 | Mammography Report ---
BREAST SPECIMEN RADIOGRAPH HISTORY: Lumpectomy FINDINGS/IMPRESSION: 2 specimen radiographs were submitted for 2 separate wire localizations within the right breast. The first specimen radiograph contains biopsy clip with a small amount of surrounding tissue. The second specimen radiograph contains the localization wire and a irregular round soft tissue mass. Signer Name: Mami Verduzco MD Signed: 06/10/2021 6:33 PM Workstation Name: [id number]
== END 2021-06-10 18:15 | disposition home or self-care (01) ==
LOC: OR 08:03
PROVIDERS: ATTEND Surgery
DX: C50.411 Malignant neoplasm of upper-outer quadrant of right female breast (principal); I10 Essential (primary) hypertension; K21.9 Gastro-esophageal reflux disease without esophagitis; E66.9 Obesity, unspecified; Z87.891 Personal history of nicotine dependence; Z79.899 Other long term (current) drug therapy; Z98.890 Other specified postprocedural states; Z88.8 Allergy status to other drugs, medicaments and biological substances; Z68.37 Body mass index [BMI] 37.0-37.9, adult; Z20.822 Contact with and (suspected) exposure to COVID-19
CPT/HCPCS: 19281; 19282; 19302; 64450; 76098; 78800; 88302; 88307; 88333; A4648; A9541; J0690; J1100; J1170; J2250; J2370; J2405; J2704; J3010; J3490; J7120; Q9968; U0003

== ENCOUNTER 2021-07-28 08:13 | Outpatient (CLI) | payer BC ==
--- NOTE | 2021-07-28 12:35 | Ultrasound Report ---
ULTRASOUND-GUIDED FINE NEEDLE ASPIRATION RIGHT BREAST INDICATION: Status post right breast lumpectomy with recurrent postoperative seroma. This was aspirat ed previously. Procedure is done for therapeutic purposes. FINDINGS: Informed consent was obtained. The fluid collection within the right breast at the 12:30 position, 8 cm from the nipple, was identified with ultrasound. The overlying skin was cleansed with chloro prep and local anesthesia was obtained with a 1% lidocaine solution. Under ultrasound guidance an 18-gauge needle was inserted into the fluid collection. A total of 130 mL of straw-colored fluid was returned . The fluid collection collapsed completely. Patient tolerated the procedure well and no immediate complications were identified. IMPRESSION: Technically successful ultrasound-guided fine-needle aspiration of fluid collection at the right [address]sh[address] st 12:30 position (site of prior lumpectomy). A total 130 L of straw-colored fluid was returned. Signer Name: Jason Niño MD Signed: 07/28/2021 12:00 PM Workstation Name: [id number]
== END 2021-07-28 08:14 | disposition home or self-care (01) ==
LOC: US 08:13
PROVIDERS: ATTEND Surgery
DX: M96.843 Postprocedural seroma of a musculoskeletal structure following other procedure (principal); D50.0 Iron deficiency anemia secondary to blood loss (chronic); Z87.891 Personal history of nicotine dependence; Z79.899 Other long term (current) drug therapy; Z88.8 Allergy status to other drugs, medicaments and biological substances; Z98.890 Other specified postprocedural states
CPT/HCPCS: 10160; 76942